=== PATIENT | male | born 2000 | race African-American/Black ===

== ENCOUNTER 2023-09-29 01:32 | Emergency (ER) | payer OTHER, SELFPAY ==
[2023-09-29 01:37] VITALS: BP 163/101; PULSE 101; RESP 20; TEMP 36.7; O2SAT 96
[2023-09-29 01:43] VITALS: O2SAT 94
--- NOTE | 2023-09-29 02:21 | EX.ED.DYSGE1 ---
HPI History of Present Illness Chief Complaint: Cold Sx Informant: patient Narrative Narrative: Patient complains that a cough keeps him up at night. Patient started with sore throat about a week ago. He was seen in another emergency department. It sounds like they did's rapid strep COVID blood work CT scan of the neck looking for abscess and started him on about 5 days of steroids. He states his sore throat is still sore but it is better. But he just keeps coughing. Its worse at night and and this keeps him up. If he tries to sleep upright is better. He is not somewhat short of breath though. He did cough up some thicker almost greenish material yesterday. He has never had fevers. No myalgias. No headache. He has no history of any illness including no respiratory illness or asthma. He has not been wheezing. He is improving but not resolved. The biggest issue is keeping him up at night due to the cough. PFSH PFSH Medical History no medical history Home Medications benzonatate 100 mg capsule 200 mg (2 x 100 mg) PO TID PRN PRN Cough #20 CAPSULES 09/29/23 [Rx Last Taken Unknown] Allergy/AdvReac Type Severity Reaction Status Date / Time No Known Allergies Allergy Verified 09/29/23 01:34 Social History Smoking Status: Unknown if ever smoked ROS ROS ED ROS Narrative A complete review of systems was performed and is negative except as documented in the history of present illness. Some specific details below. Constitutional: No recent fevers or chills. No overall malaise. EYE: No discharge, visual complaints, or pain. ENT: He had a sore throat but that is improving quite a bit. Mild nasal congestion but no drainage. No earache. CV: No chest pain or palpitations. Respiratory: See history of present illness. GI: No abdominal pain. Occasionally feels nauseated. But he describes this more as a sense of acid reflux and not real nausea. He has not vomited. He is able to eat and drink. : No frequency dysuria or hematuria. Musculoskeletal: No recent trauma. No pains. No swelling. Skin: No rash. Nondiaphoretic. Neuro: No weakness or numbness. Endocrine: No polyuria or polydipsia. EXAM Physical Exam Narrative Exam Narrative: CONSTITUTIONAL: Patient is nontoxic in appearance. The patient looks comfortable. Work of breathing looks normal. HEENT: No notable trauma. Mucous membranes doing quite moist. No sinus tenderness. No indication of pain with swallowing. Tonsils look slightly large but just minimally so. They are not red. No exudate. No asymmetry. Voice is normal. Tympanic membranes are normal. EYES: No conjunctival injection. No proptosis. No pallor. NECK:No JVD. No stridor. CARDIOVASCULAR: Regular rate. Regular rhythm. No notable murmur. No JVD. RESPIRATORY: No respiratory distress. Breathing is unlabored. No wheezes. No rhonchi. No rales. No pain with a deep breath. No chest wall tenderness. No cough phlegm in the room. Overall his lungs sound normal. Saturations are normal at 96% on room air showing no hypoxia. GASTROINTESTINAL: Not distended. Bowel sounds are normal. No tenderness. MUSCULOSKELETAL: Atraumatic. No peripheral edema. No cord. NEUROLOGICAL: Patient is alert and appropriate. No focal deficit noted. SKIN: No noted rashes. No diaphoresis. PSYCHIATRIC: Patient is calm. Mood is appropriate. Const Vital Signs: 09/29/23 01:37 09/29/23 01:43 Temperature 98.1 F Temperature Source Temporal Pulse Rate 101 H Respiratory Rate 20 H Respiratory Effort Normal Blood Pressure 163/101 H Blood Pressure Mean 121 Pulse Ox 96 Oxygen Delivery Method Room Air Room Air MDM [facility] MDM Narrative Medical decision making narrative: Sounds like he has a viral type illness. He has some nasal congestion and sore throat that is improving and a dry cough. It was productive once. Because he had some productivity and this has been going on a week we will do a chest x-ray. My independent interpretation of the patient's two-view chest x-ray shows no sign of acute process on either view. Final reading is similar. I discussed with the patient that I think his symptoms are likely viral. He is making improvement but the coughing is keeping him up at night. I will get him some Tessalon Perles to see if we can help with the symptoms. He is not wheezing and I do not think an albuterol is going to help him. Radiography Diagnostic Testing: Clinical Impression(s) from Imaging Studies Chest X-Ray 09/29/23 02:23 IMPRESSION: No acute cardiopulmonary abnormality. Electronically Signed: Mark Pereira MD at 2:33 EST , Discharge Plan Triage Chief Complaint: Cold Sx ED Provider: Kenyon Hightower Dx/Rx/DC Orders Clinical Impression: Acute bronchitis with wheezing Instructions: ED Bronchitis, No Antibiotic (Adult) Prescriptions: New benzonatate [benzonatate] 100 mg capsule 200 mg PO TID PRN PRN (Reason: Cough) Qty: 20 0RF Primary Care Provider: Care Physician,No Primary Referrals: Rajiv La MD [Med Staff - [employer]] - 3-5 Days if not improving Care Physician,No Primary [Primary Care Provider] - Disposition Disposition: Home, Self Care
--- NOTE | 2023-09-29 02:23 | RAD_ITS ---
EXAM: XR CHEST, 2 VIEWS CLINICAL INDICATION: cough TECHNIQUE: Frontal and lateral views of the chest. COMPARISON: No relevant prior studies available. FINDINGS: LUNGS AND PLEURAL SPACES: Unremarkable. No consolidation or edema. No pneumothorax. No effusion. HEART: Unremarkable. Cardiac silhouette not enlarged. MEDIASTINUM: Central airways and mediastinal contour are unremarkable. BONES/JOINTS: Unremarkable. No acute fracture. SOFT TISSUES: Unremarkable. RAD/Chest PA and Lateral IMPRESSION: No acute cardiopulmonary abnormality. Electronically Signed: Mark Pereira MD at 2:33 EST ,
[2023-09-29] MEDS: Benzonatate 100 MG Capsule 200 MG PO (03:11)
== END 2023-09-29 03:21 | disposition home or self-care (01) ==
PROVIDERS: Emergency Provider Emergency Medicine; Visit Provider Emergency Medicine
DX: J20.9 Acute bronchitis, unspecified (principal)
CPT/HCPCS: 71046; 99282